=== PATIENT | male | born 1950 | race Caucasian/White ===

== ENCOUNTER 2016-12-09 17:17 | Inpatient (IN) ==
[2016-12-09] MEDS ORDERED: Naloxone 0.4 MG/ML INJ IVP PRN (19:22)
[2016-12-09] MEDS ORDERED: Ondansetron ODT 4 MG TAB.RAPDIS SL PRN (19:22)
[2016-12-09] MEDS ORDERED: Acetaminophen 325 MG TABLET PO PRN (19:22)
[2016-12-09] MEDS ORDERED: Nitroglycerin 0.4 MG TAB.SUBL SL PRN (19:27)
[2016-12-09] MEDS ORDERED: *HR* Heparin 5,000 UNIT/ML VIAL IVP ONE (19:47)
[2016-12-09] MEDS ORDERED: *HR* Heparin 5,000 UNIT/ML VIAL IVP PRN ×2 (19:47)
[2016-12-09] MEDS ORDERED: Heparin 25,000 UNIT/500 ML D5W 25,000 UNIT/500 ML MLS IVC SCH (20:00)
--- NOTE | 2016-12-09 20:03 | Internal Med History&Physical ---
<Anibal Griffin - Last Filed: 12/09/16 21:30> Date of Encounter: 12/09/16 Time of Encounter: 20:01 Assessment and Plan (1) NSTEMI (non-ST elevated myocardial infarction) Current visit: No Status: Acute Patient has typical chest pain with troponin elevation of 0.98. No EKG changes. Patient is chest pain-free at this time. We will trend troponins, check A1c and lipid panel in a.m. Patient was given an aspirin in the emergency department. We will continue his aspirin tomorrow morning. Statin has been started. Heparin drip has been initiated. Echo has been ordered. Cardiology will be consulted. Patient will be kept nothing by mouth at midnight for possible heart cath tomorrow. (2) DVT prophylaxis Current visit: Yes Status: Acute Patient is currently on a heparin drip. Internal Medicine - H&P: HPI Chief complaint: Chest Pain Admitted From: Home Plans for Post Hospital Care: Home History of present illness: Mr. Palma is a 66 year old male with with no medical history presents with chest pain. Patient states he has had intermittent chest pain over the last week. He describes his pain as a tightness lasting approximately 15 minutes several times a day. He states gradually been getting worse. He states it radiates to both arms. He states he feels short of breath during these episodes and occasionally will feel diaphoretic with them. He states these pains are associated with activity on most occasions. He states he has never felt anything like this before. He denies fever, chills, nausea, vomiting, diarrhea, syncope, edema. Past Med Surg Social Fam HX - Past Medical History Medical history: no medical history Psychiatric history: no psych history - Past Surgical History Surgical History: no surgical history - Social History Smoking Status: Current some day smoker (Smokes one to 2 cigars a week) Smokeless Tobacco Status: No Alcohol use: none Drug use: none - Family History Mother Living Status: Hx Family Cardiac Disorders: Yes ([place] in 50s) Internal Medicine - H&P: Meds No Known Home Drugs 12/09/16 [History] Allergies No Known Allergies Allergy (Verified 12/09/16 14:57) All Systems PM: A 10-system review of systems was performed and is negative for pertinent findings except as documented above in the HPI. - Constitutional Constitutional: no chills, no fever(s) - EENT Eyes: no change in vision Nose, mouth and throat: no sinus pain, no sinus pressure - Cardiovascular Cardiovascular ROS IM: chest pain, diaphoresis, dyspnea, dyspnea on exertion, no edema, no irregular heart rhythm, no palpitations - Respiratory Respiratory: dyspnea, dyspnea on exertion, no cough, no wheezing, no chest congestion, no excessive phlegm production, no change in phlegm color - Gastrointestinal Gastrointestinal: no abdominal pain, no diarrhea, no nausea, no vomiting - Musculoskeletal Musculoskeletal ROS IM: no neck pain, no numbness, no tingling - Neurological Neurological ROS: no confusion, no dizziness, no frequent falls, no numbness, no tingling, no weakness - Psychiatric Psychiatric: no anxiety - Endocrine Endocrine IM: no polydipsia, no polyuria - Constitutional Vitals: Temp Pulse Resp BP Pulse Ox 98.3 F 85 16 157/103 98 12/09/16 18:57 12/09/16 18:57 12/09/16 18:57 12/09/16 18:57 12/09/16 18:57 General appearance: Present: A&O X 3, pleasant, no acute distress - Head Head exam: Present: atraumatic, normal inspection, normocephalic - Eye Eye exam: Present: EOMI, PERRL - ENT ENT exam: Present: mucous membranes moist - Respiratory Respiratory exam: Present: CTAB. Absent: rales, respiratory distress, rhonchi, wheezes, tachypnea - Cardiovascular Cardiovascular exam: Present: RRR. Absent: gallop, rubs, systolic murmur Additional comments: No chest wall tenderness - GI/Abdominal GI/Abdominal exam: Present: normal bowel sounds, soft. Absent: distended, tenderness - Extremities Exam Extremities exam: Present: warm. Absent: pedal edema, tenderness - Neurological Exam Neurological exam: Present: alert, CN II-XII intact, oriented X3, no focal deficits - Psychiatric Psychiatric exam: Present: normal affect, normal mood - Skin Skin exam: Present: dry, intact, warm <Stiven Miller - Last Filed: 12/09/16 23:22> Date of Encounter: 12/09/16 Internal Medicine - H&P: HPI History of present illness: Mr. Palma is a 66 year old male All Systems PM: A 10-system review of systems was performed and is negative for pertinent findings except as documented above in the HPI. - Constitutional Vitals: Temp Pulse Resp BP Pulse Ox 98.3 F 85 16 157/103 98 12/09/16 18:57 12/09/16 18:57 12/09/16 18:57 12/09/16 18:57 12/09/16 18:57 Internal Med - H&P Results - Labs Labs: Cardiac Enzymes 12/09/16 Range/Units 21:27 Troponin I 1.16 H* (0-0.03) ng/mL - EKG Data -: EKG Interpreted by Myself EKG shows normal: sinus rhythm Rate: normal - EKG Data Prior EKG available for review: no - Attending Attestation I personally interviewed and examined this patient and my medical decision- making was reviewed with the Resident Physician. I agree with the documented findings, disposition and treatment plan as described.
[2016-12-10 04:33] LABS: INR 1.1; Prothrombin Time 12.4 Seconds (9.4-12.1)
[2016-12-10 05:17] LABS: Basophils # 0.1 K/mcL (0.0-0.2); Basophils % 0.4 %; Eosinophils # 0.3 K/mcL (0.0-0.6); Eosinophils % 2.4 %; Hematocrit 47.5 % (37.5-50.1); Hemoglobin 16.6 g/dL (12.9-16.9); Immature Granulocytes % 0.3 % (0-4); Lymphocytes # 4.1 K/mcL (0.6-4.6); Lymphocytes % 31.7 %; Mean Corpuscular HGB Conc 34.9 g/dL (31.6-35.5); Mean Corpuscular Hemoglobin 31.6 pg (28.0-33.3); Mean Corpuscular Volume 90.5 fL (83.0-100.0); Mean Platelet Volume 12.4 fL (9.4-12.4); Monocytes # 0.8 K/mcL (0.0-1.3); Monocytes % 6.6 %; Neutrophils # 7.5 K/mcL (1.6-8.9); Platelet Count 204 K/mcL (140-400); Red Blood Count 5.25 M/mcL (4.19-5.50); Red Cell Distribution Width 12.6 % (11.5-14.5); Segmented Neutrophils % 58.6 %
[2016-12-10 05:30] LABS: Hemoglobin A1C 5.3 %
[2016-12-10 05:45] LABS: Calcium 9.2 mg/dL (8.6-10.8); Chol/HDL Ratio 6.1 (0-4.9); Magnesium 2.3 mg/dL (1.6-2.6); Potassium 3.8 mEq/L (3.5-4.5)
--- NOTE | 2016-12-10 08:32 | Cardiology Consult Note ---
Date of Encounter: 12/10/16 Time of Encounter: 08:00 Assessment and Plan (1) NSTEMI (non-ST elevated myocardial infarction) Current Visit: Yes Status: Acute Presented with x2 week history of typical chest pain symptoms. Troponin 0.98, 1.16, 1.20. No acute ischemic ECG changes noted. Chest pain free upon exam. Risk factors for CAD include: tobacco use, family hx , and HLD ASA 324 mg given in ED. On IV heparin gtt. Continue asa and statin. Will start betablocker. Recommend LHC with possible PCI, alternatives, risks, and benefits discussed; he is agreeable to proceed. Echocardiogram pending. Cardiac rehab consult placed. Further recommendations to follow. (2) HLD (hyperlipidemia) Current Visit: Yes Status: Acute Has not been seen by physician in 20+ years. VTL=223, agree with statin therapy. Risk factor modification. Qualifiers: Hyperlipidemia type: mixed hyperlipidemia Qualified Code(s): E78.2 - Mixed hyperlipidemia (3) Tobacco abuse Current Visit: Yes Status: Acute Hx of smokeless tobacco use, states quit 6 months ago. Reports occasional cigar use. Tobacco cessation counseling provided. Discussion w patient/family: The assessment and plan as outlined above was discussed with the patient and/or family members who expressed understanding and agreement. All questions were answered. Thank you for involving us in the care of your patient. Please call with any questions. The patient will be discussed and reviewed with Dr. Leon Monroe; changes to be made accordingly. History of Present Illness Consult date: 12/10/16 Requesting physician: Anibal Griffin Consult reason: NSTEMI Chief complaint: Chest pain History of present illness: Mr. Palma is a 66 year old male with no significant medical history who presented to the ED with 2 week history of intermittent chest discomfort. Pain described as tightness and pressure with radiation down both arms. Associated symptoms include fatigue and dyspnea. He reports symptoms have worsened over the past 2 weeks, initially occurring with exertion (i.e., yardwork, mulching); but has more recently occurred at rest. Reports has taken asa at home, seems to have improved pain. Upon arrival to ED, initial troponin 0.98; no ischemic ECG changes noted. He is chest pain free upon exam. Past Med Surg Social Fam HX - Past Medical History Attestation: Yes The following information was validated with the patient. Medical history: no medical history Psychiatric history: no psych history - Past Surgical History Surgical History: no surgical history - Social History Smoking Status: Current some day smoker (Smokes one to 2 cigars a week) Smokeless Tobacco Status: Yes (quit 6 months ago. ) Alcohol use: none Drug use: none - Family History Mother Living Status: Cause of : [place] Hx Family Cardiac Disorders: Yes ([place] in 50s) Medications and Allergies No Known Home Drugs 12/09/16 [History] Allergies No Known Allergies Allergy (Verified 12/09/16 14:57) All Systems Review: A 10-system review of systems was performed and is negative for pertinent findings except as documented above in the HPI. - Cardiovascular Cardiovascular: as per HPI Physical Examination Vital Signs, Last 4 Hours Temp Pulse Resp BP Pulse Ox 12/10/16 07:23 98.2 F 73 16 115/78 96 General: Conversant, No Apparent Distress HEENT: Atraumatic, Normocephaly, Mucus Membranes Moist Cardiac: Reg Rate and Rhythm, Normal S1 and S2 Lungs: Normal Breath Sounds, No Wheeze, Rales, Rhonchi Neuro: Alert and responsive, No focal deficits noted Abdomen: Soft, Non-Tender Skin: No rashes noted on visualized skin Musculoskeletal: No Chest Wall Tenderness Extremities: No Edema, Normal Pulses Results 12/10/16 04:06 12/10/16 04:06 Lab Results 12/09/16 12/09/16 12/10/16 20:00 21:27 02:30 WBC Hgb Hct Plt Count INR APTT 79.3 H D 66.8 H Sodium Potassium Chloride Carbon Dioxide BUN Creatinine Glucose Calcium Magnesium Troponin I 1.16 H* 12/10/16 12/10/16 12/10/16 04:00 04:06 04:06 WBC 12.8 H Hgb 16.6 Hct 47.5 Plt Count 204 INR 1.1 APTT Sodium Potassium Chloride Carbon Dioxide BUN Creatinine Glucose Calcium Magnesium Troponin I 1.20 H* 12/10/16 04:06 WBC Hgb Hct Plt Count INR APTT Sodium 141 Potassium 3.8 Chloride 104 Carbon Dioxide 23 BUN 17 Creatinine 1.44 H Glucose 99 Calcium 9.2 Magnesium 2.3 Troponin I Active Medications Acetaminophen (Tylenol) 650 mg PO Q6HR PRN PRN Reason: Mild Pain (1-3) Stop: 06/10/17 19:23 Aspirin (Aspirin) 81 mg PO DAILY CARLOS Stop: 06/11/17 09:01 Atorvastatin Calcium (Lipitor) 20 mg PO HS CARLOS Stop: 06/10/17 21:01 Last Admin: 12/09/16 20:27 Dose: 20 mg Heparin Sodium (Porcine) (Heparin) 4,000 unit IVP Q6HR PRN PRN Reason: SEE COMMENTS Stop: 06/10/17 19:48 Heparin Sodium (Porcine) (Heparin) 2,000 unit IVP Q6H PRN PRN Reason: SEE COMMENTS Stop: 06/10/17 19:48 Heparin Sodium/Dextrose (Heparin 25,000 Unit/500 Ml D5w) 25,000 unit in 500 mls @ 20 mls/hr IVC .Q24H CARLOS; 11.682 UNIT/KG/HR PRN Reason: Protocol Stop: 06/10/17 20:01 Last Titration: 12/10/16 04:58 Dose: 12.67 unit/kg/hr, 21.7 mls/hr Sodium Chloride (0.9 % Sodium Chloride) 1,000 mls @ 100 mls/hr IVC .Q10H CARLOS Stop: 12/10/16 14:46 Naloxone HCl (Narcan) 0.4 mg IVP Q2MIN PRN PRN Reason: Opioid Reversal Stop: 06/10/17 19:23 Nitroglycerin (Nitroglycerin) 0.4 mg SL Q5MIN PRN PRN Reason: Chest Pain Stop: 06/10/17 19:28 Ondansetron HCl (Zofran Odt) 4 mg SL Q8HR PRN PRN Reason: Nausea And Vomiting Stop: 06/10/17 19:23 - Imaging and Cardiology Echo: pending Other Results: 12 hour tele: avg HR=74 SR. No significant pause or event noted. - EKG Interpretation EKG results cardiology: personally reviewed Consult Discharge Plan - Plan Referrals: NO,PCP [Primary Care Provider] -
[2016-12-10] MEDS ORDERED: 0.9 % Sodium Chloride 1,000 ML IVC SCH (08:45)
[2016-12-10] MEDS: Aspirin 81 MG TAB.CHEW PO SCH (10:37)
--- NOTE | 2016-12-10 10:45 | ECHO - Doppler Report ---
Echocardiogram Name: Eduardo Palma Date of Study: 12/10/2016 Date: 1950 Ht: 72.0 in Medical Record#: [id number] Age: 66 Wt: 188.0 lb Gender: Male BSA: 2.08 Order #: [id number] Location: [facility] Room #: [id number] Reading Physician: Delon Jensen DO, MICHAEL [employer] Supervisor: Suhas Echavarria Ordering Physician: Anibal Griffin DO Primary Physician: None Indications: Chest pain, Elevated Trop Impressions: LVEF 60-65%. Normal LV chamber size and function. Asymmetric hypertrophy of the basal septum. Mild left ventricular diastolic dysfunction. Normal right ventricular structure and function. Mild to moderately dilated left atrium. No evidence of pulmonary hypertension. Left Ventricular Wall Motion: Rest Echo Findings All wall segments showed normal motion. Findings: Study Quality * Technically adequate exam. ECG Findings * Normal sinus rhythm. Left Ventricle * LVEF 60-65%. * Normal LV chamber size and function. * Asymmetric hypertrophy of the basal septum. * Mild left ventricular diastolic dysfunction. Right Ventricle * Normal right ventricular structure and function. Left Atrium * Mild to moderately dilated left atrium. Right Atrium * Normal right atrial size. Interatrial Septum * Interatrial septum not well evaluated. Aortic Valve * Trileaflet aortic valve with normal function. * No aortic regurgitation. * No aortic stenosis. Mitral Valve * Normal mitral valve structure and function. * No mitral regurgitation. * No mitral stenosis. Tricuspid Valve * Normal tricuspid valve structure and function. * Trace tricuspid regurgitation. * No evidence of pulmonary hypertension. Pulmonic Valve * Normal pulmonic valve structure and function. * No pulmonic regurgitation. Aorta * Normally sized aortic root. Pericardium * The pericardium appears normal. IVC * Normal IVC dimensions and inspiratory collapse. Pulmonary Artery * Normal visualized portions of the main pulmonary artery. History Hypertension History of Smoking Years 15 Packs Family History of CAD Myocardial Infarction Measurements: BP: 124/ 78 2D Normal Values RVIDd: 2.79 cm <2.7 cm IVSd: 1.30 cm 0.6 - 1.0 cm LVIDd: 4.29 cm 3.7 - 5.6 cm LVPWd: .89 cm 0.6 - 1.1 cm LVIDs: 2.73 cm 1.5 - 3.6 cm AO: 2.80 cm < 4.0 cm LA: 3.40 cm 2.0 - 4.0cm %FS: 36.40 cm >25 % LA volume: 68 Mitral Valve Peak E:.62 m/sec Peak A:.66 m/sec E/A Ratio:1 Peak E' Lat [place]:9.7 cm/s Peak E' Med [place]:5.84 cm/s E/E' Lat Ratio:6.4 E/E' Med Ratio:10.7 Tricuspid Valve TV Regurg Peak Grad: 23.00mmHg TV Regurg Peak [place]: 2.40m/sec Updated by Delon Jensen DO, SOLIS, MICHAEL, RENE on 12/10/2016 10:40:22 AM electronically signed on 12/10/2016 10:41:09 AM with status of Final Wall Motion Allen: 1=Normal, 2=Hypokinesis, 3=Akinesis, 4=Dyskinesis, 5=Aneurysmal, 6=Hyperkinetic, X=Not Visualized (Blank)=Missing
[2016-12-10] MEDS ORDERED: *HR* LORazepam 0.5 MG TABLET PO ONE (11:57)
[2016-12-10] MEDS ORDERED: *HR* Heparin 10,000 UNIT/10 ML VIAL ONE (14:28)
[2016-12-10] MEDS ORDERED: Nitroglycerin 1,000 MCG/10 ML VIAL IV ONE (14:28)
[2016-12-10] MEDS ORDERED: Heparin 1,000 UNITS/500 mL NS 500 ML ONE (14:28)
[2016-12-10] MEDS ORDERED: 0.9 % Sodium Chloride 1,000 ML ONE (14:28)
--- NOTE | 2016-12-10 14:50 | Pre-Sedation Evaluation ---
Pre-sedation evaluation - Pre-sedation checklist Date of procedure: 12/10/16 Procedure: [facility] Recent Vitals: Last Vital Signs Temp 98.5 F 12/10/16 11:28 Pulse 69 12/10/16 11:28 Resp 16 12/10/16 11:28 BP 127/98 12/10/16 11:28 Pulse Ox 97 12/10/16 11:28 H&P (including ROS) documented in medical record: Yes Previous reaction to sedatives/anesthetics: No Dietary Status: NPO after Midnight Airway Assessment: Patient can open mouth completely, TMJ function normal, Micrognathia (under-bite, receding chin) absent, Neck with adequate range of motion Dentition: No loose teeth or bridges Possible difficult airway: No ASA Classification *see protocol: CLASS II-Mild systemic disease Plan of Care: Pt appropriate candidate for procedure/moderate/conscious sedation , Risks/benefits of procedure/sedation discussed w/ patient/family
[2016-12-10] MEDS ORDERED: *HR* Midazolam HCl 5 MG/5 ML VIAL IVP ONE (15:00)
[2016-12-10] MEDS ORDERED: *HR* FentaNYL (PF) 250 MCG/5 ML VIAL ONE (15:00)
[2016-12-10] MEDS ORDERED: *HR* Ticagrelor 90 MG TABLET ONE (15:46)
--- NOTE | 2016-12-10 16:12 | Invasive Diagnostic Lab Proc ---
Name: Eduardo Palma Date of Study: 12/10/2016 Date: 1950 Ht: 72.0in Medical Record#: [id number] Age: 66 Wt: 189.60lb Gender: Male BSA: 2.08 Order #: [id number] BMI: 25.68 Physicians Procedure Physician: Mia Monroe MD, [facility] Referring MD: None Referring MD: Staff Name Position Time In BeaversJosé RN Monitor 02:54 PM Christine Lindsey RT Scrub 02:54 PM Isatu Antony RN Pharmacology Associate 02:54 PM Indications Indication Non-Stemi Procedures Performed Procedure L HRT ARTERY/VENTRICLE ANGIO PRQ CARD GE[place] STENT W/ANGIO 1 VSL PRQ CARD STENT W/ANGIO ADDL Pre-Procedure Checklist Informed consent is complete signed and on chart. H\\T\\P is on chart. ID band is on and ID verified with patient. Patient NPO for procedure The procedure was described for the patient and questions were answered. Blood Pressure: 115/78 ECG is on chart. Rhythm: NSR Plan of Care Patient will tolerate the procedure without complications. Adequate level of comfort will be maintained. Hemodynamics will remain stable Patient will recover from procedure without complications. Respiratory function will be maintained. Cardiac rhythm will remain stable. Patient temperature will be maintained. Patient and/or family have verbalized understanding of the procedure. Patient Education Chief Complaint/Reason for Test: Cardiac Cath Developmental Category: Adult (18-64 years) Developmentally Appropriate for Age: Yes Learning Barriers: None Education Needs: Procedure Education Method: Verbal Information Taught: Cardiac Cath Educational Evaluation: Able to repeat information Intravenous Access Time IV Size Location DC'd Fluid/Drip Rate Units RN 18g 1 /" Patent On Arrival Rt Antecubital 0.9NaCl 25 ml/hr Allergies No Known Allergies Vital Signs Time BP (mmHg) HR (bpm) O2 Sat. RR (bpm) LOC 03:00 PM / % 5 = Fully awake and oriented or at pre-proc level 03:00 PM / % 4 = Oriented but drowsy 03:15 PM / % 4 = Oriented but drowsy 02:59 PM 145 / 101 75 95 % 15 03:04 PM 113 / 63 59 89 % 13 03:09 PM 115 / 65 59 91 % 18 03:14 PM 120 / 62 53 97 % 16 03:19 PM 122 / 78 78 96 % 14 03:24 PM 125 / 71 56 97 % 20 03:29 PM 127 / 81 66 99 % 16 03:34 PM 123 / 71 80 96 % 15 03:39 PM 118 / 87 75 95 % 14 03:44 PM 130 / 71 79 94 % 14 Procedural Medications Time Medication Dose Units Method Given By 02:56 PM Oxygen 2 L/min nasal cannula Arabella Santoro RN 03:00 PM Versed 2 mg Intravenous Arabella Santoro RN 03:00 PM Fentanyl 50 mcg Intravenous Arabella Santoro RN 03:10 PM Oxygen 4 L/min nasal cannula Isatu Antony RN 03:13 PM Lidocaine 2% 10 ml Subcutaneous Mia Monroe MD, FACC 03:24 PM Angiomax 0.75mg/kg bolus: 13 ml Intravenous Isatu Antony RN 03:24 PM Angiomax 1.75mg/kg/hr: 30 ml/hr Intravenous Isatu Antony RN 03:26 PM Benadryl 25 mg Intravenous Arabella Santoro RN 03:32 PM Nitroglycerin 200 mcg Intracoronary Mia Monroe MD, FACC 03:40 PM Nitroglycerin 200 mcg Intracoronary Mia Monroe MD, FACC 03:50 PM Brilinta 180 mg Orally Isatu Antony RN ASA Classification: CLASS II- Mild systemic disease (i.e. well-controlled diabetes, hypertension, asthma, cigarette smoking) Mariann Score Preprocedure Postprocedure Activity 2- Moves 4 extremities sustained head lift Activity 2- Moves 4 extremities sustained head lift Circulation 2- SBP +/= 20 points of pre-anesthetic level Circulation 2- SBP +/= 20 points of pre-anesthetic level Consciousness 2- Awake and alert oriented x 3 Consciousness 2- Awake and alert oriented x 3 O2 Saturation 2- Able to maintain O2 satruation of 92% on room air O2 Saturation 2- Able to maintain O2 satruation of 92% on room air Respiratory 2- Able to deep breathe and cough well Respiratory 2- Able to deep breathe and cough well Total Score 10 Total Score 10 Contrast Agent: Isovue Diagnostic Contrast: 132 ml Total Contrast: 132 ml Fluoro Dose: 687 mGy Procedure Log Time Note Enter By 02:54 PM Pt arrived to pathology laboratory technologist 2 at 14:54 [facility] 02:54 PM José Beavers RN Position: Monitor Time in: 14:54 [facility] 02:54 PM Christine Lindsey RT Position: Scrub Time in: 14:54 [facility] 02:54 PM Isatu Antony RN Position: Pharmacology Associate [facility]: 14:54 [facility] Patient charges- Angio tray pack, Navilyst 3mm J, Pulse Oximetry and ACIST tubing and transducer csmith 02:55 PM CathStat 02:56 PM Physician arrived 14:56 [facility] PM ASA Class CLASS II- Mild systemic disease (i.e. well-controlled diabetes, hypertension, asthma, cigarette smoking) csmith 02:56 PM Meet and greet completed csmith 02:56 PM Sign in performed according to hospital policy. [facility] 02:56 PM Procedure start 14:56 [facility] 02:56 PM Time: 14:56 Oxygen on at 2 L/min per nasal cannula by Arabella Santoro RN [facility] 02:58 PM Vitals capture started with the following parameters, Patient=Adult, Interval=5 min, Initial Vvjgxhco=160 mmHg, Deflation Rate=5 mmHg, Cuff placed on Left Arm 02:59 PM HR=75 bpm, IXMC=580/101 mmhg, SpO2=95.0 %, Resp=15 B/min, Comment=nsr 03:00 PM Time: 15:00 Versed 2 mg Intravenous Given by Arabella Santoro RN [facility] 03:00 PM Time: 15:00 Fentanyl 50 mcg Intravenous Given by Arabella Santoro RN [facility] 03:00 PM Time: 15:00 Patient comfortable and pain free: Yes [facility] 03:00 PM Time: 15:00LOC: 5 = Fully awake and oriented or at pre-proc level [facility] 03:04 PM HR=59 bpm, ZOAS=639/63 mmhg, SpO2=89.0 %, Resp=13 B/min, Comment=nsr 03:09 PM HR=59 bpm, NXRU=604/65 mmhg, SpO2=91.0 %, Resp=18 B/min, Comment=sb 03:10 PM Time: 15:10 Oxygen on at 4 L/min per nasal cannula by Isatu Antony RN [facility] 03:13 PM Time out performed according to hospital policy [facility] 03:13 PM Pressure channel 1 zeroed. 03:14 PM HR=53 bpm, MGAN=015/62 mmhg, SpO2=97.0 %, Resp=16 B/min, Comment=sb 03:14 PM Time: 15:13 10 ml Lidocaine 2% to right groin Subcutaneous Given by Mia Monroe MD, [facility] csmith 03:15 PM Access obtained by percutaneous puncture. 5Fr 10cm Terumo Prosperity sheath placed in right Femoral artery. [id number] csmith 03:15 PM 5Fr FL 4 catheter inserted over the wire [facility] 03:15 PM 0.035 145cm Navilyst 3mmJ wire [id number] csmith 03:15 PM Time: 15:00LOC: 4 = Oriented but drowsy csmith 03:16 PM Time: 15:00 Patient comfortable and pain free: Yes csmith 03:16 PM Recorded Pressure: Ao, HR=55, Condition=Condition 1 (Aorta) Ao 96/69/82 03:16 PM LCA angiography performed in multiple views. csmith 03:17 PM Catheter removed csmith 03:17 PM 5Fr FR 4 catheter inserted over the wire [facility] csmith 03:19 PM Recorded Pressure: Ao, HR=81, Condition=Condition 1 (Aorta) Ao 94/76/85 03:19 PM HR=78 bpm, OXIW=993/78 mmhg, SpO2=96 %, Resp=14 B/min 03:21 PM Catheter removed csmith 03:22 PM Sheath exchanged for a 6 Fr 11 cm Terumo Prosperity sheath [id number] csmith 03:22 PM 6Fr XB LAD 3.5 Cordis guide catheter was used to cannulate the PCI vessel successfully. reused? No [facility] 03:23 PM Lesion found in 1st Diagonal. Pre Stenosis: 99 Pre MARVIN Flow: 2: Partial Flow/Perfusion (> 1 but < 3) csmith 03:24 PM Time: 15:24 Angiomax 0.75mg/kg bolus: 13 ml Intravenous Given by Isatu Antony RN [facility] 03:24 PM HR=56 bpm, SMSU=826/71 mmhg, SpO2=97.0 %, Resp=20 B/min, Comment=sb 03:24 PM Time: 15:24 Angiomax 1.75mg/kg/hr: 30 ml/hr Intravenous Given by Isatu Antony RN [facility] 03:24 PM Coronary Dominance: right csmith 03:26 PM Time: 15:26 Benadryl 25 mg Intravenous Given by Arabella Santoro RN csmith 03:26 PM 2.0 mm x 8 mm Emerge Monorail balloon across target lesion- successful. reused? No csmith 03:26 PM .014 Prowater 180cm guide wire across target lesion- successful. reused? No csmith 03:28 PM Balloon inflated @ 6 breanna for 20 seconds csmith 03:29 PM HR=66 bpm, MLHY=437/81 mmhg, SpO2=99.0 %, Resp=16 B/min, Comment=sb 03:30 PM 2.25mm x 12mm Synergy bioabsorbable stent across target lesion- successful Lot #[id number] csmith 03:31 PM Time: 15:16 Patient comfortable and pain free: Yes csmith 03:31 PM Time: 15:15LOC: 4 = Oriented but drowsy csmith 03:31 PM Stent deployed @ 12 breanna for 30 seconds csmith 03:32 PM Stent delivery system removed intact. csmith 03:32 PM Time: 15:32 Nitroglycerin 200 mcg Intracoronary Given by Mia Monroe MD, [facility] csmith 03:34 PM HR=80 bpm, MFOZ=042/71 mmhg, SpO2=96.0 %, Resp=15 B/min, Comment=sr 03:34 PM wire to LAD csmith 03:35 PM Lesion found in Mid LAD. Pre Stenosis: 70 Pre MARVIN Flow: 3: Complete and Brisk Flow/Perfusion csmith 03:38 PM 2.25mm x 24mm Synergy bioabsorbable stent across target lesion- successful Lot #[id number] csmith 03:39 PM HR=75 bpm, BTAJ=473/87 mmhg, SpO2=95.0 %, Resp=14 B/min, Comment=sr 03:39 PM Stent deployed @ 14 breanna for 30 seconds csmith 03:40 PM Stent deployed @ 14 breanna for 10 seconds csmith 03:40 PM stent delivery system removed intact csmith 03:40 PM Time: 15:40 Nitroglycerin 200 mcg Intracoronary Given by Mia Monroe MD, FAC csmith 03:41 PM catheter and wire removed intact csmith 03:42 PM 5Fr Pigtail catheter inserted over the wire [facility] csmith 03:43 PM Pressure channel 1 zero failed. 03:43 PM Pressure channel 1 zero failed. 03:43 PM Pressure channel 1 zeroed. 03:43 PM Recorded Pressure: LV, HR=80, Condition=Condition 1 (Left Ventricle) LV 73/18/23 03:43 PM Catheter selectively placed in left ventricle csmith 03:43 PM Recorded Pressure: LV, Ao, HR=79, Condition=Condition 1 (Left Ventricle) LV 89/40/56, (Aorta) Ao 88/72/81 03:43 PM Bolus angiogram of left Ventricle complete: 8 ml/sec for a total of 24 mls csmith 03:44 PM HR=79 bpm, UHGS=435/71 mmhg, SpO2=94.0 %, Resp=14 B/min, Comment=sr 03:44 PM Catheter removed csmith 03:44 PM Wire removed csmith 03:44 PM Bolus angiogram of right Femoral complete: 4 ml/sec for a total of 7 mls csmith 03:47 PM Procedure completed at 15:47 csmith 03:47 PM Sign out completed: Radiation Dose 687 mGy Fluoro Time: 5.8 Isovue 370 - 200ml contrast 132 ml given by Mia Monroe MD, [facility]. Complications: NoneCardiac Rehab Consult needed: YesConfirmed administered medications: Yes csmith 03:47 PM Isovue 370 - 200ml,1 Bottle(s) used. csmith 03:47 PM Sheath left in place to be pulled on floor/holding area csmith 03:47 PM Post ECG NSR csmith 03:48 PM Post Blood Pressure 130/71 csmith 03:48 PM 15:48 Post Pulses Bilateral DP \\T\\ PT 1+ csmith 03:48 PM Information taught PCI and Cardiac Cath csmith 03:49 PM Education needs Responsibilities of Patient in Care csmith 03:49 PM Learning barriers :None csmith 03:49 PM Education Methods Verbal csmith 03:50 PM Education evaluation Able to repeat information csmith 03:50 PM Site status No bleeding/hematoma - Rt Groin as reported by Christine Lindsey RT at 15:50 csmith 03:50 PM Opsite applied csmith 03:50 PM Plavix, Effient or Brilinta given Yes csmith 03:51 PM Time: 15:50 Brilinta 180 mg Orally Given by Isatu Antony RN csmith 03:51 PM Delay to floor No csmith 03:51 PM Family placed in consult room. csmith 03:54 PM Lesion found in Proximal RCA. Pre Stenosis: 40 Pre MARVIN Flow: csmith 03:54 PM Lesion found in Mid RCA. Pre Stenosis: 30 Pre MARVIN Flow: csmith 03:54 PM Lesion found in Distal RCA. Pre Stenosis: 30 Pre MARVIN Flow: csmith 03:54 PM Lesion found in LMCA. Pre Stenosis: 20 Pre MARVIN Flow: csmith 03:54 PM Lesion found in Proximal LAD. Pre Stenosis: 20 Pre MARVIN Flow: csmith 03:55 PM Lesion found in Mid Circumflex. Pre Stenosis: 20 Pre MARVIN Flow: csmith 04:00 PM Report given to Coleen CARABJAL Pt taken to Room #10. 15:58 csmith Complications Complication None Hemodynamics Pressures Site Systolic/A Wave Diastolic/V Wave Mean AO 96 69 82 AO 94 76 85 LV 73 18 23 LV 89 40 56 AO 88 72 81 Post Procedure Information Blood Pressure: 130/71 mmHg Rhythm: NSR Post procedural instructions were given Closure Device Time Device Success/Fail Mechanical Compression Site Checks Time Location Status Staff Sheath In? Note 03:50 PM Rt Groin No bleeding/hematoma Christine Lindsey RT Pulses Time Site Pre-Procedure Post-Procedure Note Bilateral DP \\T\\ PT 2+ Bilateral PT 2+ 3:48:00 PM Bilateral DP \\T\\ PT 1+ Updated by José Beavers RN on 12/10/2016 4:06:12 PM electronically signed on 12/10/2016 4:06:56 PM with status of Final
--- NOTE | 2016-12-10 16:37 | Invasive Diagnostic Lab ---
Name: Eduardo Palma Date of Study: 12/10/2016 Date: 1950 Ht: 183.0 cm /72.0 in Medical Record#: [id number] Age: 66 Wt: 86. kg / 189.60 lb Account/Order#: [id number] Gender: Male BSA: 2.08 Order #: [id number] Fluoro Dose: 687 mGy BMI: 25.68 Procedure Physician: Mia Monroe MD, [facility] Referring MD: None Referring MD: Procedures Performed: LEFT HEART CATH Stent w/ PTCA Single Major Vessel Stent w/ PTCA each add'l branch Indications: Non-Stemi Impressions: Single vessel coronary artery disease. The left ventricle is normal and has normal contractility EF 60% Patient had successful PTCA/Drug-Eluting Stent placement in the mid LAD and 1st diagonal. Recommendations: DAPT for one year minimum uninterrupted. Optimal medical therapy of patient's disease. Aggressive risk factor modification. History/Risk Factors: DVT Procedure Access obtained in the right Femoral artery by percutaneous puncture Patient had successful PTCA/Drug-Eluting Stent placement in the mid LAD and 1st diagonal. Complications: None Contrast: Isovue 132ml Closure Device: Manual Compression Hemodynamics: Pressures Site Systolic/ A Wave Diastolic/ V Wave End Diastolic/ Mean HR AO 96 69 82 55 AO 94 76 85 81 LV 73 18 23 80 LV 89 40 56 80 AO 88 72 81 78 LV Ventriculography Ejection Method: LV Gram 60% Wall Motion: SMITH Anterobasal Normal Anterolateral Severe Hypokinesis Apical: Normal Inferoapical Normal Inferobasal Normal Coronary Dominance: right Lesion Findings/Interventions * Left Main Coronary Artery There is a 20% stenosis in the LMCA. * Left Anterior Descending There is a 20% stenosis in the Proximal LAD. There is a 70% stenosis in the Mid LAD. The lesion has a MARVIN flow of 3 and has no thrombus present. An intervention was performed on the Mid LAD with a final stenosis of 0%. There were no lesion complications. The final MARVIN flow was 3. There is a 10 mm long, 99% stenosis in the 1st Diagonal. The lesion has a MARVIN flow of 2 and has thrombus present. An intervention was performed on the 1st Diagonal with a final stenosis of 0%. There were no lesion complications. The final MARVIN flow was 3. * Circumflex There is a 20% stenosis in the Mid Circumflex. * Right Coronary Artery There is a 40% stenosis in the Proximal RCA. There is a 30% stenosis in the Mid RCA. There is a 30% stenosis in the Distal RCA. Interventional Device(s) Vessel Segment Type Name Diameter (mm) Length (mm) 1st Diagonal Balloon Emerge PTCA Dilatation Catheter Monorail 2 8 1st Diagonal Drug Eluting Stent Synergy 2.25 12 Updated by Jsoé Beavers RN on 12/10/2016 4:04:22 PM Mia Monroe MD, FACC electronically signed on 12/10/2016 4:31:53 PM with status of Final
[2016-12-10] MEDS: *HR* LORazepam 2 MG/ML VIAL IVP PRN ×2 (16:39→18:05)
--- NOTE | 2016-12-10 19:34 | Internal Med Progress Note ---
Date of Encounter: 12/10/16 Time of Encounter: 12:00 - Assessment and plan (1) NSTEMI (non-ST elevated myocardial infarction) Current Visit: Yes Status: Acute Assessment and plan: For cardiac cath today. Continue heparin drip (2) HLD (hyperlipidemia) Current Visit: Yes Status: Acute Assessment and plan: Continue statin. Qualifiers: Hyperlipidemia type: mixed hyperlipidemia Qualified Code(s): E78.2 - Mixed hyperlipidemia (3) Tobacco abuse Current Visit: Yes Status: Acute Assessment and plan: Cessation counselling. - Subjective Interval history: Mr. Palma is currently admitted for acute NSTEMI. He is moderate to high risk due to potential for worsening cardiac status and IV medications. Mr. Palma is very anxious about cath today. He has no further chest pain. No cough No fever or chills. - Constitutional Vitals: Temp Pulse Resp BP Pulse Ox 98.5 F 61 16 126/86 98 12/10/16 18:50 12/10/16 18:50 12/10/16 18:50 12/10/16 18:50 12/10/16 18:50 General appearance: Present: A&O X 3, pleasant - Head Head exam: Present: normocephalic - Eye Eye exam: Present: conjuntiva pink - ENT ENT exam: Present: mucous membranes moist - Respiratory Respiratory exam: Present: CTAB. Absent: rales, wheezes - Cardiovascular Cardiovascular exam: Present: RRR. Absent: tachycardia - GI/Abdominal GI/Abdominal exam: Present: soft. Absent: tenderness - Extremities Exam Extremities exam: Present: warm. Absent: pedal edema - Neurological Exam Neurological exam: Present: alert, oriented X3, no focal deficits - Psychiatric Psychiatric exam: Present: anxious - Skin Skin exam: Present: warm. Absent: rash Internal Medicine: Result - Labs CBC & Chem 7: 12/10/16 04:06 12/10/16 04:06 Labs: Short CBC 12/10/16 Range/Units 04:06 WBC 12.8 H (4.3-11.1) K/mcL Hgb 16.6 (12.9-16.9) g/dL Hct 47.5 (37.5-50.1) % Plt Count 204 (140-400) K/mcL Neutrophils # 7.5 (1.6-8.9) K/mcL BMP 12/10/16 04:06 Sodium 141 Potassium 3.8 Chloride 104 Carbon Dioxide 23 BUN 17 Creatinine 1.44 H Glucose 99 Calcium 9.2 Cardiac Enzymes 12/09/16 12/10/16 Range/Units 21:27 04:06 Troponin I 1.16 H* 1.20 H* (0-0.03) ng/mL - ABG Interpretation ABG results: PT/INR, D-dimer PT 12.4 Seconds (9.4-12.1) H 12/10/16 04:00 Consult Discharge Plan - Plan Referrals: Muriel Arteaga, NET SORTER [Advanced Practice Nurse] - 12/17/16 10:30 am NO,PCP [Primary Care Provider] -
[2016-12-11 04:52] LABS: Basophils % 0.4 %; Eosinophils # 0.2 K/mcL (0.0-0.6); Eosinophils % 1.7 %; Hematocrit 41.5 % (37.5-50.1); Immature Granulocytes % 0.3 % (0-4); Lymphocytes % 27.2 %; Mean Corpuscular HGB Conc 34.7 g/dL (31.6-35.5); Mean Corpuscular Hemoglobin 31.6 pg (28.0-33.3); Mean Platelet Volume 11.7 fL (9.4-12.4); Monocytes # 0.9 K/mcL (0.0-1.3); Monocytes % 8.3 %; Neutrophils # 6.9 K/mcL (1.6-8.9); Platelet Count 196 K/mcL (140-400); Red Blood Count 4.56 M/mcL (4.19-5.50); Red Cell Distribution Width 12.8 % (11.5-14.5); Segmented Neutrophils % 62.1 %
[2016-12-11 05:03] LABS: Hemoglobin 14.4 g/dL (12.9-16.9)
[2016-12-11 05:11] LABS: BUN/Creatinine Ratio 11 (6-26); Blood Urea Nitrogen 15 mg/dL (8-26); Calcium 8.7 mg/dL (8.6-10.8); Carbon Dioxide 25 mEq/L (19-29); Chloride 107 mEq/L (98-109); Glucose 98 mg/dL (70-99); Osmolality,Calculated 291 (280-300); Potassium 3.9 mEq/L (3.5-4.5); Sodium 140 mEq/L (136-145); eGFR For African Americans > 60 (> 60); eGFR For Non-African Americans 53 (> 60)
[2016-12-11 07:35] VITALS: BP 121/77
--- NOTE | 2016-12-11 07:43 | Cardiology Progress Note ---
Date of Encounter: 12/11/16 Time of Encounter: 08:00 Assessment and Plan (1) NSTEMI (non-ST elevated myocardial infarction) Current Visit: Yes Status: Acute Presented with x2 week history of typical chest pain symptoms. Troponin 0.98, 1.16, 1.20. No acute ischemic ECG changes noted. Risk factors for CAD include: tobacco use, family hx, and HLD Has been chest pain free since PCI--no issues upon exam this morning. LHC 12/10/16: EF 60%, successful PTCA/[place] to mLAD and 1st diagonal; otherwise mild non-obstructive CAD. TTE 12/10/16: EF 60-65%, asymmetric hypertrophy of basal septum, mild LVDD, normal RV structure and function, mild-moderately dilated LA, no pH, normal wall motion. Post PCI restrictions/education discussed. Emphasized the importance of uninterrupted DAPT (asa + plavix) for at least 1 year. Continue statin and betablocker and DAPT (asa + plavix). Recommend prn SL NTG at discharge. Follow-up with [facility] in 5-7 days, will coordinate appt. No further inpatient recommendations, Cardiology will sign-off. (2) HLD (hyperlipidemia) Current Visit: Yes Status: Acute Has not been seen by physician in 20+ years. TVJ=490, agree with statin therapy. Risk factor modification. Qualifiers: Hyperlipidemia type: mixed hyperlipidemia Qualified Code(s): E78.2 - Mixed hyperlipidemia (3) Tobacco abuse Current Visit: Yes Status: Acute Hx of smokeless tobacco use, states quit 6 months ago. Reports occasional cigar use. Tobacco cessation counseling provided. Discussion w patient/family: The assessment and plan as outlined above was discussed with the patient and/or family members who expressed understanding and agreement. All questions were answered. Thank you for involving us in the care of your patient. Please call with any questions. The patient was discussed and reviewed with Dr. Leon Monroe; Cardiology will sign-off, please call with questions. Subjective Principal diagnosis: NSTEMI Interval history: Seen and examined. Has no complaints upon exam this morning. He reports headache, chest pressure were resolved after PCI. No issues with right groin cath site. Objective Vital Signs, Last 4 Hours Temp Pulse Resp BP Pulse Ox 12/11/16 07:34 98.2 F 69 18 121/77 98 12/11/16 03:50 97.9 F 54 17 119/74 96 General: Conversant, No Apparent Distress HEENT: Atraumatic, Normocephaly, Mucus Membranes Moist Cardiac: Reg Rate and Rhythm, Normal S1 and S2 Lungs: Normal Breath Sounds, No Wheeze, Rales, Rhonchi Neuro: Alert and responsive, No focal deficits noted Abdomen: Soft Skin: No rashes noted on visualized skin Musculoskeletal: No Chest Wall Tenderness Extremities: No Edema, Normal Pulses Other: Right groin: dressing removed, site stable. No hematoma, oozing, or bleeding noted at site. +2 PT/DP pulses. Results 12/11/16 04:42 12/11/16 04:42 Lab Results 12/11/16 12/11/16 12/11/16 04:42 04:42 04:42 WBC 11.1 Hgb 14.4 D Hct 41.5 Plt Count 196 APTT 28.8 D Sodium 140 Potassium 3.9 Chloride 107 Carbon Dioxide 25 BUN 15 Creatinine 1.36 H Glucose 98 Calcium 8.7 Active Medications Acetaminophen (Tylenol) 650 mg PO Q6HR PRN PRN Reason: Mild Pain (1-3) Stop: 06/10/17 19:23 Last Admin: 12/10/16 12:03 Dose: 650 mg Aspirin (Aspirin) 81 mg PO DAILY [facility] Stop: 06/11/17 09:01 Last Admin: 12/10/16 10:37 Dose: 81 mg Atorvastatin Calcium (Lipitor) 80 mg PO HS [facility] Stop: 06/11/17 21:01 Last Admin: 12/10/16 21:25 Dose: 80 mg Clopidogrel Bisulfate (Plavix) 75 mg PO DAILY [facility] Stop: 06/12/17 09:01 Lisinopril (Zestril) 2.5 mg PO DAILY [facility] PRN Reason: Protocol Stop: 06/11/17 16:01 Last Admin: 12/10/16 21:24 Dose: 2.5 mg Lorazepam (Ativan) 1 mg IVP Q6HR PRN PRN Reason: Anxiety Stop: 06/11/17 16:33 Last Admin: 12/10/16 18:05 Dose: 1 mg Metoprolol Tartrate (Lopressor) 25 mg PO BID [facility] Stop: 06/11/17 09:01 Last Admin: 12/10/16 21:24 Dose: 25 mg Naloxone HCl (Narcan) 0.4 mg IVP Q2MIN PRN PRN Reason: Opioid Reversal Stop: 06/10/17 19:23 Nitroglycerin (Nitroglycerin) 0.4 mg SL Q5MIN PRN PRN Reason: Chest Pain Stop: 06/10/17 19:28 Ondansetron HCl (Zofran Odt) 4 mg SL Q8HR PRN PRN Reason: Nausea And Vomiting Stop: 06/10/17 19:23 - Imaging and Cardiology Echo: report reviewed Cardiac cath: report reviewed Other Results: 12 hour tele: avg HR=59 SR/SB. No significant pause or event. Few PVCs. - EKG Interpretation EKG results cardiology: personally reviewed Consult Discharge Plan - Plan Additional Instructions: follow up with dr monroe in the cardiology clinic. Referrals: Muriel Arteaga, GLA[facility]ER [Advanced Practice Nurse] - 12/17/16 10:30 am NO,PCP [Primary Care Provider] -
[2016-12-11] MEDS: Aspirin 81 MG TAB.CHEW PO SCH (08:40)
--- NOTE | 2016-12-11 08:59 | Discharge Summary ---
Date of Encounter: 12/11/16 Time of Encounter: 08:56 - Discharge Diagnosis (1) NSTEMI (non-ST elevated myocardial infarction) Priority: Primary Status: Acute (2) HLD (hyperlipidemia) Priority: Primary Status: Acute Qualifiers: Hyperlipidemia type: mixed hyperlipidemia Qualified Code(s): E78.2 - Mixed hyperlipidemia (3) Tobacco abuse Priority: Secondary Status: Chronic (4) Elevated serum creatinine Priority: Primary Status: Acute - Discharge Medications Prescriptions: Nitroglycerin 0.4 mg SL Q5MIN PRN #7 tab.subl PRN Reason: Chest Pain Aspirin 81 mg PO DAILY #30 tab.chew Atorvastatin [Lipitor] 80 mg PO HS #60 tablet Clopidogrel [Plavix] 75 mg PO DAILY #30 tablet Lisinopril [Zestril] 2.5 mg PO DAILY #30 tablet Metoprolol [Lopressor] 25 mg PO BID #60 tablet Home Medications: Aspirin 81 mg PO DAILY #30 tab.chew 12/11/16 [Rx] Atorvastatin [Lipitor] 80 mg PO HS #60 tablet 12/11/16 [Rx] Clopidogrel [Plavix] 75 mg PO DAILY #30 tablet 12/11/16 [Rx] Lisinopril [Zestril] 2.5 mg PO DAILY #30 tablet 12/11/16 [Rx] Metoprolol [Lopressor] 25 mg PO BID #60 tablet 12/11/16 [Rx] Nitroglycerin 0.4 mg SL Q5MIN PRN #7 tab.subl 12/11/16 [Rx] Allergies/Adverse Reactions: Allergies No Known Allergies Allergy (Verified 12/09/16 14:57) Procedures/tests Complete & Pending: Procedures Performed prior 72 hours Category Date Time Status CL Cardiac Catheterization [CL] Routine Java Enterprise [employer] 12/10/16 09:24 Completed ECG 12 lead ECG [ECG] Stat Y 12/10/16 15:56 Completed EV echocardiogram Routine Y 12/10/16 20:03 Completed Date of admission: 12/10/16 00:24 Primary care physician: PCP NO Consults: 12/09/16 23:26 Consult to Cardiology [CONS] Routine Comment: Consulting Provider: Cardiology Karmen Reason for Consult: NSTEMI Call Completed: Yes 12/10/16 08:51 Consult to Cardiac Rehabilitation-Phase1 [CONS] Routine Comment: Reason for Consult: NSTEMI Call Completed: No - Patient Status Disposition: Home, Self-Care Condition: Good Functional capacity at discharge: independent ambulation Overall status at discharge: patient is progressing back to baseline - Discharge Instructions Instructions: Metoprolol (By mouth), Lisinopril (By mouth), Aspirin (By mouth) , Nitroglycerin, Rapid Release (By mouth), Atorvastatin (By mouth), Clopidogrel (By mouth), Myocardial Infarction (DC) Follow Up With: Muriel Arteaga, LOAN INTERVIEWER [Advanced Practice Nurse] - 12/17/16 10:30 am NO,PCP [Primary Care Provider] - Additional Instructions: STOP SMOKING. follow up with your primary care doctor next week to quit smoking and yearly examination. - Diet and Activity Activity: resume usual activities as tolerated Diet: low fat, low cholesterol Interval History: patient has no complaints. no chest pain. no shortness of breath Hospital course: Mr. Palma is a 66 year old male with past medical history significant for tobacco use who presented with a chief complaint of chest pain. Troponin peaked at 1.2. EKG showed no acute ischemic changes. Patient underwent left heart catheterization with successful PTCA/[place] to mLAD. Echocardiogram revealed LVEF 60%, asymmetric hypertrophy of basal septum, mild/moderate dilated LA. He was started on aspirin, Plavix, statin and beta raymond. Patient counseled to quit smoking. His creatinine was noted to be elevated at 1.44 and 1.36 at discharge. Patient counseled to avoid any [id number] pain medications including NSAIDs. Plan: Follow-up in the cardiology clinic. Follow-up with primary care physician for tobacco cessation. Repeat BMP as outpatient. - Time Spent with Patient Total time spent providing and/or coordinating discharge services: - Constitutional Vitals: Temp Pulse Resp BP Pulse Ox 98.2 F 69 18 121/77 98 12/11/16 07:34 12/11/16 07:34 12/11/16 07:34 12/11/16 07:34 12/11/16 07:34 General appearance: Present: cooperative, A&O X 3, pleasant, no acute distress, answers questions appropriately - Neck Neck exam general surgery: Present: lymphadenopathy. Absent: supple, trachea midline - Respiratory Respiratory exam: Present: CTAB - Cardiovascular Cardiovascular exam: Present: RRR - GI/Abdominal GI/Abdominal exam: Present: normal bowel sounds, soft. Absent: distended, tenderness Additional comments: right groin: no bruises. no hematoma. no bruits. good pedal pulses. - Extremities Exam Extremities exam: Absent: pedal edema - Back Exam Back exam: Absent: CVA tenderness (L), CVA tenderness (R) - Neurological Exam Neurological exam: Present: alert, oriented X3, no focal deficits, strengths equal and symetr throughout. Absent: facial droop, speech deficit - Skin Skin exam: Absent: rash
--- NOTE | 2016-12-11 13:36 | Electrocardiograph Report ---
[place] [id number] Test Date: 2016-12-10 Pat Name: Eduardo Palma Department: 110 Room: 2N10 Gender: M Transfer Man: ELLIS : 1950 Requested By: Mia Monroe Order Number: [id number] Reading MD: Mia Monroe Measurements Intervals [place] Rate: 75 P: 45 SC: 197 QRS: 64 QRSD: 100 T: 92 QT: 398 QTc: 428 Interpretive Statements SINUS RHYTHM NONSPECIFIC T-WAVE ABNORMALITY Electronically Signed On 12-11-2016 13:35:15 EDT by Mia Monroe
== END 2016-12-11 13:05 | disposition home or self-care (01) | DRG 247 ==
LOC: 2NENU → SUATTDRO 12-10 00:24 → 2NNU 12-10 16:09
PROVIDERS: ADMIT Internal Medicine; ATTEND Internal Medicine